=== PATIENT | male | born 1995 | race Caucasian/White ===

== ENCOUNTER 2018-12-22 13:03 | Emergency (ER) | payer SELFPAY ==
[~2018-12-22] VITALS: Ht 182.9 cm; Wt 86.0 kg
[2018-12-22 16:39] VITALS: BP 154/100
== END 2018-12-22 16:41 | disposition home or self-care (01) ==
LOC: ER 13:03
DX: S86.911A Strain of unspecified muscle(s) and tendon(s) at lower leg level, right leg, initial encounter (principal); F12.10 Cannabis abuse, uncomplicated; W18.39XA Other fall on same level, initial encounter; Y93.67 Activity, basketball; Y92.310 Basketball court as the place of occurrence of the external cause; Y99.8 Other external cause status
CPT/HCPCS: 73562; 99283

== ENCOUNTER 2019-01-28 22:12 | Emergency (ER) | payer SELFPAY ==
[~2019-01-28] VITALS: Ht 182.9 cm; Wt 83.0 kg
[2019-01-29 00:44] VITALS: BP 132/91
== END 2019-01-29 00:52 | disposition home or self-care (01) ==
LOC: ER 23:33
DX: M25.462 Effusion, left knee (principal); F12.10 Cannabis abuse, uncomplicated; X50.1XXA Overexertion from prolonged static or awkward postures, initial encounter; Y93.89 Activity, other specified; Y92.89 Other specified places as the place of occurrence of the external cause; Y99.8 Other external cause status
CPT/HCPCS: 99283

== ENCOUNTER 2021-12-09 16:26 | Emergency (ER) | payer OTHER ==
[~2021-12-09] VITALS: Ht 182.9 cm; Wt 84.0 kg
[2021-12-09] MEDS ORDERED: LIDOCAINE HCL/PF 1% 10 MG/ML 5ML VIAL INFIL ONE (16:45)
[2021-12-09] MEDS ORDERED: CHLORHEXIDINE GLUCONATE 0.12% MOUTHWASH UDC SSP SCH ×2 (16:45→18:15)
[2021-12-09] MEDS ORDERED: BACITRACIN ZINC OINT UDPKT TOP ONE (16:45)
[2021-12-09] MEDS ORDERED: TETANUS, DIPHTHERIA, PERTUSSIS VAC/PF 0.5ML (>10YR OLD) IM ONE (16:45)
[2021-12-09] MEDS ORDERED: IBUPROFEN 600MG TABLET PO ONE (16:45)
[2021-12-09] MEDS ORDERED: IBUP-2029 MT (16:57)
[2021-12-09] MEDS ORDERED: CHLO473M2 MT (16:57)
[2021-12-09] MEDS ORDERED: AMOX-424 MT (16:57)
[2021-12-09 18:19] VITALS: BP 117/72
== END 2021-12-09 18:20 | disposition home or self-care (01) ==
LOC: ER 16:26
DX: S01.512A Laceration without foreign body of oral cavity, initial encounter (principal); S09.8XXA Other specified injuries of head, initial encounter; F12.10 Cannabis abuse, uncomplicated; X58.XXXA Exposure to other specified factors, initial encounter; Y93.89 Activity, other specified; Y92.89 Other specified places as the place of occurrence of the external cause; Y99.8 Other external cause status; Z79.899 Other long term (current) drug therapy
CPT/HCPCS: 12014; 90471; 90715; 99283; J3490

== ENCOUNTER 2021-12-12 13:08 | Emergency (ER) | payer OTHER ==
[~2021-12-12] VITALS: Ht 172.7 cm; Wt 77.0 kg
[~2021-12-12 13:08] MED LIST: AMOX-424 MT; CHLO473M2 MT; IBUP-2029 MT
[2021-12-12 13:35] VITALS: BP 137/87
== END 2021-12-12 14:36 | disposition home or self-care (01) ==
LOC: ER 13:08
DX: Z48.00 Encounter for change or removal of nonsurgical wound dressing (principal); R03.0 Elevated blood-pressure reading, without diagnosis of hypertension
CPT/HCPCS: 99281

== ENCOUNTER 2021-12-17 11:36 | Emergency (ER) | payer OTHER, MEDICAID ==
[~2021-12-17] VITALS: Ht 167.6 cm; Wt 81.0 kg
[2021-12-17 12:12] VITALS: BP 118/85
== END 2021-12-17 12:37 | disposition home or self-care (01) ==
LOC: ER 11:36
DX: Z48.02 Encounter for removal of sutures (principal)
CPT/HCPCS: 99281